=== PATIENT | male | born 1960 | race Caucasian/White ===

== ENCOUNTER 2021-06-28 10:30 | Emergency (ER) | payer MEDICARE, OTHER ==
[~2021-06-28 10:30] MED LIST: BRILINTA90 MG PO; CRESTOR20 MG PO; HYDROCODON-ACE1 EAC6 PO; KLONOPIN TAB 00.5 MG PO; KLONOPIN0.5 MG PO; LISINOPRIL5 MG PO; METOPROLOL TART25 MG PO; NEURONTIN 300300 MG PO; NITROSTAT 0.40.4 MG SL; NITROSTAT0.4 MG SL; NORCO 10-325 T1 EACH PO; PLAVIX 75 MG TA75 MG PO; PROTONIX40 MG PO; PROZAC20 MG PO; RANEXA1000 MG PO; TIZANIDINE HCL4 MG PO; WELLBUTRIN SR150 M1 PO
[2021-06-28 13:00] LABS: HEMOGLOBIN 15.9 gm/dl (14.0-17.5); RED BLOOD COUNT 5.2 M/UL (4.20-5.50); WHITE BLOOD COUNT 7.4 K/UL (4.5-11.0)
[2021-06-28 13:28] LABS: BUN/CREATININE RATIO 11 (0-10)
[2021-06-28] MEDS ORDERED: VENTOLIN HFA 66.7 GM INH (14:43)
[2021-06-28] MEDS ORDERED: DOXYCYCLINE HY100 MG PO (14:43)
== END 2021-06-28 14:51 | disposition home or self-care (01) ==
LOC: ER1 10:30
PROVIDERS: Nurse Practitioner
DX: R06.02 Shortness of breath (principal); E78.5 Hyperlipidemia, unspecified; J44.9 Chronic obstructive pulmonary disease, unspecified; I11.0 Hypertensive heart disease with heart failure; I50.9 Heart failure, unspecified; Z95.1 Presence of aortocoronary bypass graft; Z87.891 Personal history of nicotine dependence; Z86.16 Personal history of COVID-19; I25.10 Atherosclerotic heart disease of native coronary artery without angina pectoris; Z86.711 Personal history of pulmonary embolism
CPT/HCPCS: 71045; 80053; 82550; 82553; 83735; 83874; 84484; 85025; 93005; 99285